=== PATIENT | female | born 1975 | race Caucasian/White ===

== ENCOUNTER 2019-09-02 11:09 | Inpatient (IN) | payer MEDICAID ==
[~2019-09-02] VITALS: Ht 157.5 cm; Wt 208.8 kg
--- NOTE | 2019-09-02 11:10 | NUR ---
BIB 102 FROM [facility] C/O CHEST PRESSURE, SOB and CONGESTION X 2 DAYS, MISSED DIALYSIS LAST WEDNESDAY. TO ER BED 8, PLACED IN A BARIATRIC BED, HOOKED TO SHORT STORY WRITER AND POX, CHANGED TO HOSP GOWN, WARM BLANKET PROVIDED, PATIENT AAO x 4, DR AGUILAR AT BEDSIDE.
--- NOTE | 2019-09-02 11:39 | NUR ---
IV PERIPHERAL LINE ESTABLISHED AT LAC 18G. BLOOD DRAWN AND SENT TO LAB
[2019-09-02] MEDS ORDERED: PANT40TA4 PO (11:49)
[2019-09-02] MEDS ORDERED: SEVE800T8 PO (11:49)
[2019-09-02] MEDS ORDERED: MIDO10TA PO (11:49)
[2019-09-02] MEDS ORDERED: ACET-868 PO (11:49)
[2019-09-02] MEDS ORDERED: LACT10SO PO (11:49)
[2019-09-02] MEDS ORDERED: FOLI0.4T2 PO (11:49)
[2019-09-02] MEDS ORDERED: FERR325T23 PO (11:49)
[2019-09-02] MEDS ORDERED: CEPH-570 PO (11:49)
[2019-09-02] MEDS ORDERED: CALC667C6 PO (11:49)
[2019-09-02] MEDS ORDERED: ERGO500014 PO (11:49)
[2019-09-02] MEDS ORDERED: VITA1TAB56 PO (11:49)
[2019-09-02] MEDS ORDERED: HYDR-4384 PO (11:49)
[2019-09-02] MEDS ORDERED: ALLO100T PO (11:49)
[2019-09-02] MEDS ORDERED: EPOE1VIA6 SQ (11:49)
[2019-09-02] MEDS ORDERED: POLY17PO4 PO (11:49)
[2019-09-02] MEDS ORDERED: SODI1TAB66 PO (11:49)
[2019-09-02] MEDS ORDERED: CRAN500C5 PO (11:49)
[2019-09-02] MEDS ORDERED: AMIN30LI2 PO (11:49)
[2019-09-02] MEDS ORDERED: IPRA3AMP23 IH (11:49)
[2019-09-02] MEDS ORDERED: POLY15DR40 EACHEYE (11:49)
[2019-09-02] MEDS ORDERED: LEVO50TA8 PO (11:49)
[2019-09-02 11:57] LABS: BASOPHILS # (AUTO) 0.1 /CMM (0.0-0.2); BASOPHILS % (AUTO) 1.2 % (0.0-2.0); EOSINOPHILS % (AUTO) 2.2 % (0.0-6.0); HEMATOCRIT 29 % (33-45); HEMOGLOBIN 9.4 g/dL (11.5-14.8); LYMPHOCYTES # (AUTO) 1.2 /CMM (0.8-4.8); LYMPHOCYTES % (AUTO) 23.5 % (20.0-44.0); MEAN CORPUSCULAR HGB CONC 33 g/dl (31.0-36.0); MEAN CORPUSCULAR VOLUME 102 fL (82-100); MONOCYTES # (AUTO) 0.4 /CMM (0.1-1.30); NEUTROPHILS # (AUTO) 3.2 /CMM (1.8-8.9); NEUTROPHILS % (AUTO) 64.1 % (43.0-81.0); PLATELET COUNT (AUTO) 96 /CMM (150-450); RED BLOOD CELL COUNT(AUTO) 2.81 MIL/uL (4.0-5.2); WHITE BLOOD COUNT (AUTO) 4.9 K/uL (4.3-11.0)
[2019-09-02 12:00] LABS: POTASSIUM 4.3 mmol/L (3.5-5.1)
[2019-09-02 12:02] LABS: CREATININE 7.8 mg/dL (0.6-1.3)
--- NOTE | 2019-09-02 12:43 | NUR ---
AWAITING CALL FROM [facility] DOOR REPAIRER PER ADMITTING
--- NOTE | 2019-09-02 13:00 | NUR ---
YUDELKA FROM [facility]. PROVIDED [facility]ICALS. [phone]. WILL CALL US BACK AFTER MEDICAL DIRECTORS APPROVAL.
--- NOTE | 2019-09-02 13:12 | NUR ---
SPOKED TO HE WANTS TO TRANSFER PT TO OTHER HOSPITAL.
--- NOTE | 2019-09-02 13:55 | NUR ---
REGAL FILE DRAWER FINISHER WILL CALL BACK FOR PT TRANSFER INFO.
--- NOTE | 2019-09-02 14:45 | NUR ---
PATIENT IN BED AWAKE, HOOKED TO MONITOR, VSS. WILL CONTINUE TO MONITOR ACCORDINGLY.
[2019-09-02 14:57] LABS: BAND % (MANUAL) 2 % (0.0-5.0); EOSINOPHILS % (MANUAL) 2 % (0-4); LYMPHOCYTES % (MANUAL) 19 % (16-48); MONOCYTES % (MANUAL) 8 % (0-11.0); NEUTROPHILS % (MANUAL) 69 (42-76)
--- NOTE | 2019-09-02 16:48 | NUR ---
SPOKE TO YUDELKA OF [facility]. [phone]. PENDING PEER TO PEER AND BED ASSIGNMENT INFORMATION. AWAITING CALL BACK. PER [facility] PIG HANDLER, IT MIGHT TAKE 1-2 HOURS
--- NOTE | 2019-09-02 17:08 | NUR ---
ACCEPTED PT ON [facility] AWAITING TRANSFER INFO.
--- NOTE | 2019-09-02 17:21 | NUR ---
SPOKE TO LAILA DAMON NURSE OF [facility]. [phone]
[2019-09-02] MEDS ORDERED: ACETAMINOPHEN ES 500 MG TABLET ONE (18:53)
[2019-09-02] MEDS ORDERED: ACETAMINOPHEN ES 500 MG TABLET PO ONE (19:00)
--- NOTE | 2019-09-02 19:08 | NUR ---
[facility] UNDERSHE[facility] AND H[facility]P GOWN.
--- NOTE | 2019-09-02 20:26 | NUR ---
SPOKE WITH AYDEN FROM [facility]. NO BEDS AVAILABLE AT THIS TIME. AUTHORIZATION TO ADMIT TO [facility]
--- NOTE | 2019-09-02 21:00 | NUR ---
REPORT GIVEN TO JAIRO COSTA FOR JEANNETTE.
[2019-09-02 21:30] VITALS: BP 96/46
[2019-09-02] MEDS ORDERED: HYDROCODONE/APAP 5/325MG 1 EACH TABLET PO PRN (21:30)
[2019-09-02] MEDS ORDERED: ZOLPIDEM TARTRATE 5 MG TABLET PO PRN (21:30)
[2019-09-02] MEDS ORDERED: ACETAMINOPHEN 325 MG TABLET PO PRN (21:30)
[2019-09-02] MEDS ORDERED: Z GUARD REMEDY 2 OZ OINT TP PRN (21:30)
[2019-09-02] MEDS ORDERED: ONDANSETRON HCL/PF 4 MG/2 ML VIAL IVP PRN (21:30)
--- NOTE | 2019-09-02 21:45 | NUR ---
RN NOTES ADMITTED PATIENT FROM [facility] DUE TO CHEST PAIN AND MISSED DIALYSIS ON WEDNESDAY. ALERT AND ORIENTED X4, STABLE ON ROOM AIR, DYSPNEA, MORBIDLY OBESE, 460.5 LBS, GENERALIZED EDEMA, TROPONIN ELEVATED, SR WITH BBB ON THE TELE, OLIGURIC, DX ESRD AND PULMONARY EDEMA, LUNG SOUNDS DIMINISHED, LEFT BUTTOCKS AND HIP WITH MASD, MOIST AND WEEPING, ABDOMINAL FOLD REDNESS, BILATERAL MEDIAL THIGH WITH MASD, MOIST AND WEEPING, LEFT ANKLE FRACTURE WITH SOFT SPLINT. PHOTOS TAKEN.
[2019-09-02 22:00] VITALS: BP 96/46
--- NOTE | 2019-09-02 22:45 | NUR ---
RN NOTES SEEN BY CRM MARKETING EXECUTIVE MARCELA, MADE AWARE OF LOW BP, PER CRM MARKETING EXECUTIVE CONTINUE MIDODRINE
[2019-09-02] MEDS ORDERED: POLYETHYLENE GLYCOL 3350 17 GM POWD.PACK PO PRN (23:00)
[2019-09-02] MEDS: SODIUM CHLORIDE 1000 MG TABLET PO SCH (23:35)
[2019-09-02] MEDS: MIDODRINE HCL (5MG) 5 MG TABLET PO SCH (23:51)
[2019-09-03] VITALS: BP_SYST 101; BP_SYST 104; BP_DIAS 54
[2019-09-03 04:00] VITALS: BP_SYST 98; BP_DIAS 50; BP_DIAS 54
--- NOTE | 2019-09-03 04:30 | NUR ---
RN NOTES SERIAL TROPONIN RESULT, NOTIFIED HEAD BATCHER MARCELA, NO NEW ORDER
--- NOTE | 2019-09-03 06:28 | NUR ---
RN NOTES ALERT AND ORIENTED X4, STABLE ON ROOM AIR, DYSPNEA ON EXERTION, MORBIDLY OBESE, SR WITH BB, HR 90, HEPARIN FOR VTE, SCD PUMP CONTRAINDICATED, RIGHT IJ HD CATH, HD MWF, OLIGURIC, BUTTOCKS, LEFT HIP, BILATERAL MEDIAL THIGH MASD, SKIN MOIST AND WEEPING, LEFT ANKLE FX WITH SOFT SPLINT, GIVEN NORCO 1 TAB X1 FOR PAIN, ADEQUATE RELIEF, SODIUM LOW, ON SODIUM BICARBONATE TABLET, POSSIBLE HD TODAY, BARIMAXX BED ORDERED, WOUND CONSULT ORDERED, [place] FOR BP SUPPORT. Addendum: 09/03/19 at 0721 by JOYCE VALLEJO RN COMMENT: CHANGED ORIENTATION FROM LEFT HIP, LEFT ANKLE TO RIGHT HIP,RIGHT ANKLE RN NOTES ALERT AND ORIENTED X4, STABLE ON ROOM AIR, DYSPNEA ON EXERTION, MORBIDLY OBESE, SR WITH BB, HR 90, HEPARIN FOR VTE, SCD PUMP CONTRAINDICATED, RIGHT IJ HD CATH, HD MWF, OLIGURIC, BUTTOCKS, RIGHT HIP, BILATERAL MEDIAL THIGH MASD, SKIN MOIST AND WEEPING, RIGHT ANKLE FX WITH SOFT SPLINT, GIVEN NORCO 1 TAB X1 FOR PAIN, ADEQUATE RELIEF, SODIUM LOW, ON SODIUM BICARBONATE TABLET, POSSIBLE HD TODAY, BARIMAXX BED ORDERED, WOUND CONSULT ORDERED, [place] FOR BP SUPPORT.
[2019-09-03 07:12] LABS: BASOPHILS # (AUTO) 0.1 /CMM (0.0-0.2); BASOPHILS % (AUTO) 1.4 % (0.0-2.0); EOSINOPHILS % (AUTO) 2.5 % (0.0-6.0); HEMATOCRIT 29 % (33-45); HEMOGLOBIN 9.5 g/dL (11.5-14.8); MEAN CORPUSCULAR HGB CONC 33 g/dl (31.0-36.0); MEAN CORPUSCULAR VOLUME 100 fL (82-100); MONOCYTES # (AUTO) 0.4 /CMM (0.1-1.30); MONOCYTES % (AUTO) 8.7 % (2.0-12.0); NEUTROPHILS # (AUTO) 3.2 /CMM (1.8-8.9); NEUTROPHILS % (AUTO) 66.4 % (43.0-81.0); PLATELET COUNT (AUTO) 94 /CMM (150-450); RED BLOOD CELL COUNT(AUTO) 2.84 MIL/uL (4.0-5.2); WHITE BLOOD COUNT (AUTO) 4.8 K/uL (4.3-11.0)
[2019-09-03] MEDS ORDERED: LEVOTHYROXINE SODIUM 50 MCG TABLET PO SCH (07:30)
[2019-09-03] MEDS ORDERED: PANTOPRAZOLE 40 MG TABLET.DR PO SCH (07:30)
--- NOTE | 2019-09-03 07:35 | NUR ---
TRAILER SECTIONS ASSEMBLER NOTES RECEIVED PT IN BED, ASLEEP, EASILY AROUSED, A/OX3-4. PT TOLERATING RA, WITH NO ACUTE RESPIRATORY DISTRESS NOTED. ON TELE MONITORING SR 89 WITH BBB. PT DENIES ANY PAIN OR DISCOMFORT AT THIS TIME. PT DENIES ANY CONCERNS OR QUESTIONS WELL. PIV TO LAC G18, FLUSHED WITH NS, INTACT AND OPERATIONAL. PT KEPT COMFORTABLE. CALL LIGHT KEPT WITHIN REACH. PT'S BED IN LOWEST, LOCKED POSITION WITH SRX3. WILL CONTINUE PLAN OF CARE.
[2019-09-03 07:43] LABS: THYROID STIMULATING HORMONE 3.385 uIU/mL (0.358-3.74)
[2019-09-03 07:45] LABS: ALBUMIN 2.8 g/dL (3.4-5.0); BILIRUBIN,TOTAL 1.7 mg/dL (0.2-1.0); CALCIUM, SERUM 8.4 mg/dL (8.5-10.1); MAGNESIUM 2.4 mg/dL (1.8-2.4); PHOSPHORUS 5.6 mg/dL (2.5-4.9); POTASSIUM 4.3 mmol/L (3.5-5.1)
[2019-09-03 08:00] VITALS: BP 100/59
[2019-09-03] MEDS ORDERED: EPINEPHRINE (1:10,000) SYRINGE 1 MG/10 ML DISP.SYRIN IVP ONE (08:00)
[2019-09-03] MEDS ORDERED: SEVELAMER CARBONATE 800 MG TABLET PO SCH (08:00)
[2019-09-03] MEDS ORDERED: CALCIUM CHLORIDE 1,000 MG/10 ML DISP.SYRIN IV ONE (08:00)
[2019-09-03] MEDS ORDERED: SODIUM BICARBONATE SYR 50 MEQ/50 ML DISP.SYRIN IV ONE (08:00)
[2019-09-03] MEDS: SODIUM CHLORIDE 1000 MG TABLET PO SCH (08:17)
[2019-09-03 08:36] VITALS: BP 100/59
[2019-09-03] MEDS: MIDODRINE HCL (5MG) 5 MG TABLET PO SCH (08:36)
--- NOTE | 2019-09-03 08:37 | NUR ---
MS RN NOTES PT COMPLAINED OF 3/10 PAIN TO RIGHT ANKLE AND REQUESTED SPECIFICALLY FOR TYLENOL PRN. RN GAVE PRN TYLENOL 650MG ORDERED. WILL CONTINUE TO MONITOR.
[2019-09-03 08:55] LABS: EOSINOPHILS % (MANUAL) 1 % (0-4); LYMPHOCYTES % (MANUAL) 21 % (16-48); MONOCYTES % (MANUAL) 8 % (0-11.0); NEUTROPHILS % (MANUAL) 70 (42-76)
[2019-09-03] MEDS ORDERED: ALLOPURINOL 100 MG TABLET PO SCH (09:00)
[2019-09-03] MEDS ORDERED: FOLIC ACID 1 MG TABLET PO SCH (09:00)
[2019-09-03] MEDS ORDERED: HEPARIN SODIUM, PORCINE 5000 UNITS/1 ML VIAL SQ SCH (09:00)
[2019-09-03] MEDS ORDERED: Medication Not On Formulary EA (Midodrine Hcl 10 MG) PO SCH (09:00)
--- NOTE | 2019-09-03 10:07 | NUR ---
RN RR & CODE NOTES 0902 - PT FOUND BY [employer] BUSINESS DEVELOPMENT NOT RESPONDING. PULSE AND CHEST RISE/ BREATHING PRESENT. CALLED RAPID RESPONSE. 0904 - OPERATIONS SPECIALISTS ARRIVED, VENTILATED PT VIA OXYGEN MASK. BLOOD SUGAR TAKEN, 95. 0906 - RT SUCTIONED PT. 0910 - ER MD/DR LARA ARRIVED. PT REMAINS UNRESPONSIVE WITH PULSE. 09 - ACLS RN/MASON GAVE SUCCINYLCHOLINE, PREP FOR INTUBATION PER MD. 0912 - PT ON VFIB. INTUBATION SUCCESSFUL. STARTED CPR. CODE BLUE INITIATED. REFER T CODE BLUE SHEET. Addendum: 09/03/19 at 1040 by JESSENIA WILBURN RN PT ARRIVED TO ICU AT 0930. CONTINUOUS CPR WHILE ON TRANSPORT. DR LARA AT BEDSIDE. PT REMAINS PULSELESS VFIB. PT PRONOUNCE AT [address] LARA.
--- NOTE | 2019-09-03 10:10 | NUR ---
RN NOTES RN CALLED FAMILY/BROTHER/OSWALD, MADE AWARE ABOUT THE SITUATION AND .
--- NOTE | 2019-09-03 10:20 | NUR ---
RN NOTES RN CALLED [facility] WITH REFERENCE NUMBER: [id number].
--- NOTE | 2019-09-03 10:45 | NUR ---
RN CALLED COAL OR ORE CONTROLLER AND LOYD TO RELEASE BODY BY COAL OR ORE CONTROLLER/BOO.
--- NOTE | 2019-09-03 10:54 | NUR ---
RN CALLED BROTHER/OSWALD [phone], REGARDING MORTUARY ARRANGEMENT NO ANSWER AT THIS TIME. NO VOICEMAIL SET-UP WELL. WILL CALL AGAIN.
[2019-09-03] MEDS ORDERED: SUCCINYLCHOLINE CHLORIDE 20 MG/ML VIAL IV ONE (11:28)
[2019-09-03] MEDS ORDERED: FEE EMEERGENCY 1 MIN EA MC ONE (11:28)
== END 2019-09-03 12:15 | disposition expired | DRG 190 ==
LOC: ER 11:10 → TELE 20:39 → MED 09-03 08:17 → ICU 09-03 09:13
PROVIDERS: ADMIT Hospitalist; ATTEND Hospitalist
PROC: 5A2204Z Restoration of Cardiac Rhythm, Single (ICD-10-PCS; principal; 2019-09-03)
PROC: 0BH17EZ Insertion of Endotracheal Airway into Trachea, Via Natural or Artificial Opening (ICD-10-PCS; principal; 2019-09-03)
DX: I21.4 Non-ST elevation (NSTEMI) myocardial infarction (principal); I50.22 Chronic systolic (congestive) heart failure; D69.6 Thrombocytopenia, unspecified; E87.1 Hypo-osmolality and hyponatremia; N18.6 End stage renal disease; E66.01 Morbid (severe) obesity due to excess calories; Z99.2 Dependence on renal dialysis; Z79.51 Long term (current) use of inhaled steroids; Z79.899 Other long term (current) drug therapy; D53.9 Nutritional anemia, unspecified; Z87.442 Personal history of urinary calculi; Z79.01 Long term (current) use of anticoagulants; Z68.45 Body mass index [BMI] 70 or greater, adult; Z83.3 Family history of diabetes mellitus; K21.9 Gastro-esophageal reflux disease without esophagitis; E03.9 Hypothyroidism, unspecified; M10.9 Gout, unspecified; S82.891A Other fracture of right lower leg, initial encounter for closed fracture; X58.XXXA Exposure to other specified factors, initial encounter; Y92.9 Unspecified place or not applicable; Y99.9 Unspecified external cause status
CPT/HCPCS: 36415; 71045-TC; 80048-TC; 80053-TC; 80061-TC; 82962-TC; 83735-TC; 83880; 84100-TC; 84439-TC; 84443-TC; 84484-TC; 85025-TC; 87081-TC; G0378; J0171; J0330; J1644; J3490